=== PATIENT | female | born 1955 | race Caucasian/White ===

== ENCOUNTER 2018-02-16 12:46 | Outpatient (RCR) | payer BC, OTHER ==
[2018-02-03 13:31] LABS: BASOPHILS % (AUTO) 0 % (0-10); EOSINOPHILS # (AUTO) 0.3 10^3/uL (0.0-0.3); EOSINOPHILS % (AUTO) 3 % (0-10); HEMATOCRIT 44 % (35-52); HEMOGLOBIN 14.6 G/DL (11.5-16.0); LYMPHOCYTES % (AUTO) 25 % (12-44); MEAN CORPUSCULAR HEMOGLOBIN 29 PG (25-34); MEAN CORPUSCULAR HGB CONC 33 G/DL (32-36); MEAN CORPUSCULAR VOLUME 87 FL (80-99); MEAN PLATELET VOLUME 9.3 FL (7.4-10.4); MONOCYTES # (AUTO) 0.5 X 10^3 (0.0-1.0); MONOCYTES % (AUTO) 6 % (0-12); NEUTROPHILS # (AUTO) 5.4 X 10^3 (1.8-7.8); NEUTROPHILS % (AUTO) 66 % (42-75); PLATELET COUNT 364 10^3/uL (130-400); RED BLOOD COUNT 5.08 10^6/uL (4.35-5.85); RED CELL DISTRIBUTION WIDTH 16.5 % (10.0-14.5); WHITE BLOOD COUNT 8.2 10^3/uL (4.3-11.0)
[2018-02-03 13:53] LABS: ALBUMIN 4.3 GM/DL (3.2-4.5); BILIRUBIN,TOTAL 0.5 MG/DL (0.1-1.0); CALCIUM 10.1 MG/DL (8.5-10.1); CREATININE SERUM 1.23 MG/DL (0.60-1.30); POTASSIUM 4.9 MMOL/L (3.6-5.0); TOTAL PROTEIN 7.4 GM/DL (6.4-8.2)
[2018-02-18] MEDS ORDERED: VERA180T5 PO (13:06)
[2018-02-18] MEDS ORDERED: PANT40TA3 PO (13:06)
[2018-02-18] MEDS ORDERED: DOXE10CA29 PO (13:06)
[2018-02-18] MEDS ORDERED: BTR10SP2 NS (13:06)
[2018-02-18] MEDS ORDERED: CALC1TAB PO (13:06)
[2018-02-18] MEDS ORDERED: FROV2.5T5 PO (13:06)
[2018-02-18] MEDS ORDERED: BIOT10004 PO (13:06)
[2018-02-18] MEDS ORDERED: LEVO112T55 PO (13:06)
[2018-02-18] MEDS ORDERED: BUPR-42 PO (13:06)
[2018-02-18] MEDS ORDERED: VITA1CAP PO (13:06)
[2018-02-18] MEDS ORDERED: CHOL10003 PO (13:06)
[2018-02-18] MEDS ORDERED: DOCU-238 PO (13:08)
[2018-02-19] MEDS ORDERED: ACHD5005 PO (13:39)
== END 2018-03-01 | disposition home or self-care (01) ==
LOC: ONC 12:46
PROVIDERS: ATTEND Internal Medicine Hematology & Oncology
DX: Z08 Encounter for follow-up examination after completed treatment for malignant neoplasm (principal); Z85.3 Personal history of malignant neoplasm of breast; N63.20 Unspecified lump in the left breast, unspecified quadrant; I10 Essential (primary) hypertension; G43.909 Migraine, unspecified, not intractable, without status migrainosus; E03.9 Hypothyroidism, unspecified; N89.8 Other specified noninflammatory disorders of vagina; Z79.899 Other long term (current) drug therapy; Z90.12 Acquired absence of left breast and nipple
CPT/HCPCS: 36415; 80053; 85025; 99213

== ENCOUNTER 2018-02-18 05:53 | Outpatient (CLI) | payer OTHER ==
[~2018-02-18] VITALS: Ht 161.3 cm; Wt 64.4 kg
[2018-02-18] MEDS ORDERED: LEVO112T55 PO (13:06)
[2018-02-18] MEDS ORDERED: BIOT10004 PO (13:06)
[2018-02-18] MEDS ORDERED: CHOL10003 PO (13:06)
[2018-02-18] MEDS ORDERED: CALC1TAB PO (13:06)
[2018-02-18] MEDS ORDERED: FROV2.5T5 PO (13:06)
[2018-02-18] MEDS ORDERED: PANT40TA3 PO (13:06)
[2018-02-18] MEDS ORDERED: DOXE10CA29 PO (13:06)
[2018-02-18] MEDS ORDERED: VITA1CAP PO (13:06)
[2018-02-18] MEDS ORDERED: VERA180T5 PO (13:06)
[2018-02-18] MEDS ORDERED: BTR10SP2 NS (13:06)
[2018-02-18] MEDS ORDERED: BUPR-42 PO (13:06)
[2018-02-18] MEDS ORDERED: DOCU-238 PO (13:08)
[2018-02-19] MEDS ORDERED: ACHD5005 PO (13:39)
== END 2018-02-18 13:21 | disposition home or self-care (01) ==
LOC: PREOP 05:53
PROVIDERS: ATTEND Surgery
DX: Z01.818 Encounter for other preprocedural examination (principal)

== ENCOUNTER 2018-02-19 10:35 | Day surgery (SDC) | payer OTHER ==
[~2018-02-19] VITALS: Ht 161.3 cm; Wt 64.4 kg
[~2018-02-19 10:35] MED LIST: BIOT10004 PO; BTR10SP2 NS; BUPR-42 PO; CALC1TAB PO; CHOL10003 PO; DOCU-238 PO; DOXE10CA29 PO; FROV2.5T5 PO; LEVO112T55 PO; PANT40TA3 PO; VERA180T5 PO; VITA1CAP PO
--- OUTSIDE RECORDS SUMMARY | 2018-02-19 10:40 | XMS REPORT ---
Author Author [facility] Organization [facility] Address [address] [place], [place] [id number] Care Team Providers Care Inside Sales Lead Name Role Phone PCP Unavailable Allergies and Adverse Reactions Name Reaction Notes Demerol seizure Cafergot Red Dye #40 Plan of Treatment Not available. Medications Active Name Start Date Estimated Completion Date SIG Comments Trazodone Oral Tablet 100 mg 1 tab at bedtime Calcium 600 + D(3) Oral Tablet mg(1,500mg) -200 unit take 1 tablet by oral route 3 times a day Verapamil Oral Tablet Sustained Release 180 mg take 1 tablet (180 mg) by oral route once daily with food Synthroid Oral Tablet 88 mcg take 1 tablet (88 mcg) by oral route once daily Venlafaxine Oral Capsule, Sust. Release 24 hr 75 mg take 1 capsule (75 mg) by oral route once daily with food Citracal Plus Magnesium Oral Tablet 250-40-125 mg-mg-unit take 1 tablet by oral route daily Fluticasone Nasal [place], Suspension 50 mcg/Actuation spray 2 sprays ( 100 mcg) in each nostril by intranasal route once daily as needed Pepcid AC oral tablet 20 mg take 1 tablet (20 mg) by oral route 2 times per day Reglan oral tablet 5 mg 09/05/2014 take 1 tablet (5 mg) by oral route 4 times per day 30 minutes before meals and at bedtime Protonix oral tablet,delayed release (DR/EC) 40 mg 09/05/2014 12/04/2014 take 1 tablet (40 mg) by oral route once daily for 30 days Discontinued Name Start Date Discontinued Date SIG Comments Arimidex Oral Tablet 1 mg 10/21/2012 take 1 tablet (1 mg) by oral route once daily Prilosec OTC Oral Tablet, Delayed Release (E.C.) 20 mg 10/21/2012 take 1 tablet by oral route 2 times a day Boniva Oral Tablet 150 mg 10/21/2012 take 1 tablet (150 mg) by oral route once a month on the same date; Take with a full glass of water and remain in an upright position for at least 60 minutes. Progesterone in Oil Intramuscular 60 mg/ml cream 09/05/2014 1/2 to 1 ml 3x/ week estrogen 0.1%/testosterone 0.1% vaginal cream 09/05/2014 1 ml nightly Problem List Description Status Onset Hypertension Active Breast Cancer, Female Active Reflux esophagitis Active Vital Signs Date Time BP-Sys(mm[Hg] BP-Jaycee(mm[Hg]) HR(bpm) RR(rpm) Temp WT HT HC BMI BSA BMI Percentile O2 Sat(%) 09/05/2014 10:44:00 AM 136 mmHg 80 mmHg 77 bpm 20 rpm 96.8 F 156 lbs 63 in 27.63 kg/m2 1.77 m2 98 % 01/04/2013 11:55:00 AM 126 mmHg 86 mmHg 70 bpm 20 rpm 96.4 F 123 lbs 63 in 21.7882 kg/m 1.5748 m 96 % 10/21/2012 11:00:00 AM 122 mmHg 90 mmHg 82 bpm 20 rpm 97 F 133 lbs 63 in 23.56 kg/m2 1.64 m2 95 % 09/20/2010 9:40:00 AM 130 mmHg 78 mmHg 88 bpm 16 rpm 97.9 F 142.125 lbs 96 % 09/06/2010 3:13:00 PM 140 mmHg 90 mmHg 67 bpm 16 rpm 97.2 F 147.125 lbs 100 % Social History Name Description Comments Tobacco Never smoker History of Procedures Not available. Results Summary Not available. History Of Immunizations Not available. History of Past Illness Name Date of Onset Comments Hypertension Thyroid disorder Migraine Reflux esophagitis Breast Cancer, Female Allergic rhinitis Diverticulitis Gastritis Low Back Pain Sep 06 2010 3:33PM Resolved Low Back Pain Sep 20 2010 9:40AM Abdominal pain, epigastric Oct 21 2012 10:58AM Dyspepsia Oct 21 2012 10:58AM Colon Cancer Screening Oct 21 2012 10:58AM Family History of Colon Cancer Oct 21 2012 10:58AM Atrophic gastritis Jan 04 2013 11:56AM Follow-up examination after endoscopy Jan 04 2013 11:56AM Diverticulosis of the colon Jan 04 2013 11:56AM Ingrowing Nail Sep 05 2014 10:51AM Esophageal Reflux Sep 05 2014 10:51AM Payers Insurance Name Company Name Plan Name Plan Number Policy Number Policy Group Number Start Date [employer] [place] [id number] N/A [facility]- Supplement [id number] N/A [employer] [id number] N/A [facility] [id number] N/A History of Encounters Visit Date Visit Type Provider 09/05/2014 Procedures Marek Castro MD 01/04/2013 Office visit Marek Castro MD 11/19/2012 Hospital Marek Castro MD 10/21/2012 Office visit Marek Castro MD 09/20/2010 Office visit Sherine Kingston MD 09/06/2010 Office visit Sherine Kingston MD
--- OUTSIDE RECORDS SUMMARY | 2018-02-19 10:40 | XMS REPORT ---
Author Author [facility] Medical Staff Organization [facility] Address [address] [place], [place] [address] Phone [phone] Summary purpose CCDA Sent to [facility] Chief Complaint and Reason for Visit Admit Diagnosis 1 HYPOTHYROIDISM Problem list No authorized problems tracked for continuity of care are available for this visit. Encounters No authorized problems tracked for encounter diagnoses are available for this visit. Medications No medications recorded for this patient visit Allergies, adverse reactions, alerts No allergy information is available for this patient. Immunizations No immunizations recorded for this patient visit Relevant diagnostic tests and/or laboratory data No authorized results are available for this patient visit History of procedures Procedure Code Code Type Description Date Performed Performing Physician 72703 CPT-4 ASSAY THYROID STIM HORMONE 07-05-2016 ROBLES KYLE 76477 CPT-4 ASSAY OF FREE THYROXINE 07-05-2016 ROBLES KYLE Functional status No functional or cognitive status observations are available for this visit. Vital signs No authorized vital signs are available for this visit. Social history No Social History or smoking status observations were recorded for this visit. ( Unknown if ever smoked.) Treatment Plan No treatment plan text is available for this visit. Hospital discharge instructions No discharge instruction text is available for this visit.
--- OUTSIDE RECORDS SUMMARY | 2018-02-19 10:40 | XMS REPORT | CCD ---
Author Author MARCE LOVELACE Unknown Address [address] [place] [address] Care Team Providers Care Transition Of Care Specialist Name Role Phone EVANGELINA ER, TIMOTHY DO Attphys KATHLEEN ER, TIMOTHY DO Prisurg Allergies Allergy Code Allergy Type Reaction Status PYRIDIUM 0 Drug allergy Active DEMEROL 0 Drug allergy Active CAFERGOT 0 Drug allergy Active Active Medications Unknown or Not Available. Problems Unknown or Not Available. Procedures Procedure Code Procedure Type Date CT HEAD W/O CONTRAST 263225163 SNOMED CT 05/12/2016 CULTURE CSF 702115069 SNOMED CT 05/12/2016 GRAM STAIN 49147683 SNOMED CT 05/12/2016 CSF ROUTINE EXAM 130970896 SNOMED CT 05/12/[address] 78[address]15 [address] 05/12/2016 COMPREHENSIVE METABOLIC PANEL 527990573 SNOMED CT 2015 C REACTIVE PROTEIN 22350211 SNOMED CT 05/12/2016 CBC W/ AUTO DIFF (RFLX MAN DIFF IF IND) 2133966 SNOMED CT 05/12/2016 INFLUENZA A & B 018986802 SNOMED CT 05/12/2016 ^CBC W/AUTO DIFF 4003268 SNOMED CT 05/12/2016 Results COMPREHENSIVE METABOLIC PANEL - Collect Date/Time: 05/12/2016 10:25 Test Name Code Test Result Test Units Test Ref Range GLUCOSE 2345-7 91 MG/DL L=70 H=100 SODIUM 2951-2 142 MEQ/L L=135 H=148 POTASSIUM 2823-3 3.6 MEQ/L L=3.5 H=5.3 CHLORIDE 2075-0 106 MEQ/L L=96 H=110 CO2 2028-9 22 MEQ/L L=22 H=29 BUN 3094-0 15 MG/DL L=8 H=22 CREATININE 2160-0 1.2 MG/DL L=0.6 H=1.6 SGOT/AST 1920-8 15 IU/L L=10 H=40 SGPT/ALT 1742-6 9 IU/L L=8 H=54 ALK PHOS 6768-6 127 IU/L L=35 H=115 TOTAL PROTEIN 2885-2 6.8 G/DL L=5.5 H=8.5 ALBUMIN 1751-7 4.2 G/DL L=3.1 H=5.4 TOTAL BILI 1975-2 0.5 MG/DL L=0.0 H=1.5 CALCIUM 96499-9 10.1 MG/DL L=8.2 H=10.6 AGE 60 yrs GFR NonAA 46 GFR AA 56 eGFR 46 mL/min/1.7 eGFR AA* 56 mL/min/1.7 CBC W/ AUTO DIFF (RFLX MAN DIFF IF IND) - Collect Date/Time: 05/12/2016 10:25 Test Name Code Test Result Test Units Test Ref Range WBC 03377-3 7.1 TH/CMM L=4.5 H=10.8 RBC 789-8 4.73 ML/CMM L=4.20 H=5.40 HGB 718-7 13.9 G/DL L=12.0 H=16.0 HCT 4544-3 42.0 % L=37.0 H=47.0 MCV 89 FL L=81 H=99 MCH 29.4 PG L=27.0 H=33.0 MCHC 33.1 G/DL L=31.0 H=36.0 RDW SD 44 FL L=36 H=50 RDW CV 13.3 % L=0.0 H=14.8 MPV 9.4 FL L=9.3 H=12.5 PLT 777-3 298 TH/CMM L=130 H=440 NRBC# 0.00 TH/CMM L=0.00 H=0.00 NRBC% 0.0 /100WBC L=0.0 H=2.0 %NEUT 65.0 % %LYMP 26.9 % %MONO 7.0 % %EOS 0.3 % %BASO 0.4 % #NEUT 4.61 TH/CMM L=2.10 H=8.20 #LYMP 1.91 TH/CMM L=0.90 H=5.20 #MONO 0.50 TH/CMM L=0.16 H=1.00 #EOS 0.02 TH/CMM L=0.00 H=0.80 #BASO 0.03 TH/CMM L=0.00 H=0.20 MANUAL DIFF NOT IND N/A INFLUENZA A & B - Collect Date/Time: 05/12/2016 10:25 Test Name Code Test Result Test Units Test Ref Range INFLUENZA A & B 6437-8 NO INFLUENZA A OR B DETECTED N/A MENINGITIS/ENCEPHALITIS PANEL - Collect Date/Time: 05/12/2016 13:15 Test Name Code Test Result Test Units Test Ref Range Escherichia coli K1 Not Detected N/A NEG: Not Detected Haemophilus influen Not Detected N/A NEG: Not Detected Listeria monocytoge Not Detected N/A NEG: Not Detected Neisseria meningiti Not Detected N/A NEG: Not Detected Strep agalactiae Not Detected N/A NEG: Not Detected Strep pneumoniae Not Detected N/A NEG: Not Detected Cytomegalovirus Not Detected N/A NEG: Not Detected Enterovirus Not Detected N/A NEG: Not Detected Herpes simplex vir1 Not Detected N/A NEG: Not Detected Herpes simplex vir2 Not Detected N/A NEG: Not Detected Human herpesvirus 6 Not Detected N/A NEG: Not Detected Human parechovirus Not Detected N/A NEG: Not Detected Varicella zoster vi Not Detected N/A NEG: Not Detected Cryptococcus avani/ga Not Detected N/A NEG: Not Detected C REACTIVE PROTEIN - Collect Date/Time: 05/12/2016 10:25 Test Name Code Test Result Test Units Test Ref Range C REACTIVE PROTEIN 1988-5 <0.5 MG/DL L=0.0 H= 1.0 LACTIC ACID - Collect Date/Time: 05/12/2016 10:25 Test Name Code Test Result Test Units Test Ref Range LACTIC ACID 2524-7 2.2 mmol/L L=0.5 H=1.6 Function Status Unknown or Not Available. History of Immunizations Unknown or Not Available. Plan of Treatment Unknown or Not Available. Social History Smoking Status Code Start Date End Date Never smoker [id number] Vital Signs Unknown or Not Available. Function Status Unknown or Not Available. Goals Unknown or Not Available. ASSESSMENTS Unknown or Not Available. Health Concerns Section Unknown or Not Available.
--- OUTSIDE RECORDS SUMMARY | 2018-02-19 10:40 | XMS REPORT | CCD ---
Author Author MARCE LOVELACE Organization Unknown Address [address] [place] [address] Care Team Providers Care Methods Analyst Data Processing Name Role Phone OBED DAVIS DO Attphys Allergies Allergy Code Allergy Type Reaction Status PYRIDIUM 0 Drug allergy Active DEMEROL 0 Drug allergy Active CAFERGOT 0 Drug allergy Active Active Medications Medication Code Dose Units Frequency Route Modification Start Date/Time OFLOXACIN 0.3% "OCUFLOX" OPHTH DROPS 372974 1 EA X1 BOTHEYES 01/24/2017 22:15 Problems Unknown or Not Available. Procedures Unknown or Not Available. Results Unknown or Not Available. Function Status Unknown or Not Available. History of Immunizations Immunization Code Date Tdap 115 10/31/2011 Novel [id number] 127 05/19/2009 Influenza, seasonal, injectable 141 04/10/2012 Influenza, seasonal, injectable 141 03/22/2013 Plan of Treatment Unknown or Not Available. Social History Smoking Status Code Start Date End Date Never smoker [id number] Vital Signs Unknown or Not Available. Function Status Unknown or Not Available. Goals Unknown or Not Available. ASSESSMENTS Unknown or Not Available. Health Concerns Section Unknown or Not Available.
[2018-02-19] MEDS ORDERED: LACTATED RINGERS 1,000 ML IV PRN (10:52)
[2018-02-19] MEDS ORDERED: ceFAZolin 2 GM IV Premixed 50 ML IV ONE (11:00)
[2018-02-19 11:15] VITALS: BP 146/89
[2018-02-19] MEDS ORDERED: proPOfol 200 MG/20 ML (DIPRIVAN) VIAL IV ONE (12:25)
[2018-02-19] MEDS ORDERED: DEXAMETHASONE 10 MG/ML (DECADRON) 1 ML VIAL ONE (12:25)
[2018-02-19] MEDS ORDERED: LIDOCAINE PF 2% 2 ML (XYLOCAINE) VIAL ONE (12:25)
[2018-02-19] MEDS ORDERED: SEVOFLURANE (ULTANE) 15 ML INHAL SOLN ONE ×3 (12:25→13:17)
[2018-02-19] MEDS ORDERED: ONDANSETRON 4 MG/2 ML (SDV) Z0FRAN ONE (12:25)
[2018-02-19] MEDS ORDERED: fentaNYL INJECTION 100 MCG/2 ML AMP ONE (12:26)
[2018-02-19] MEDS ORDERED: MIDAZOLAM 2 MG/2 ML (VERSED) VIAL ONE (12:26)
--- NOTE | 2018-02-19 12:32 | Progress Note-Pre Operative ---
Pre-Operative Progress Note H&P Reviewed The H&P was reviewed, patient examined and no changes noted. Date Seen by Provider: Feb 19, 2018 Time Seen by Provider: 12:32 Date H&P Reviewed: Feb 19, 2018 Time H&P Reviewed: 12:32 Pre-Operative Diagnosis: left breast mass MONA PINA DO Feb 19, 2018 12:32
[2018-02-19] MEDS ORDERED: BUPIVACAINE 0.5% 30 ML (SENSORCAINE) VIAL ONE (12:35)
[2018-02-19] MEDS ORDERED: LIDOCAINE 1% INJ 20 ML 20 ML VIAL ONE (12:35)
--- NOTE | 2018-02-19 13:38 | Progress Note-Post Operative ---
Post-Operative Progess Note Surgeon (s)/Machine Builder (s) Surgeon MONA PINA DO Machine Builder: na Pre-Operative Diagnosis left breast mass Post-Operative Diagnosis same Procedure & Operative Findings Date of Procedure 02/19/18 Procedure Performed/Findings excisional left breast biopsy 2.4x5.5cm Anesthesia Type gen Estimated Blood Loss Estimated blood loss (mL): min Specimens/Packing Specimens Removed left breast mass MONA PINA DO Feb 19, 2018 13:38
[2018-02-19] MEDS ORDERED: ACHD5005 PO (13:39)
--- NOTE | 2018-02-19 13:41 | Discharge Inst-Simple/Standard ---
Discharge Inst-Standard Discharge Medications New, Converted or Re-Newed RX: RX on Chart Patient Instructions/Follow Up Plan of Care/Instructions/FU: 2 weeks Herrera Activity as Tolerated: No Discharge Diet: Regular Diet Other Inst to Patient Follow up Appt: Make appointment for 2 week. Instructions: No lifting greater than 10 pounds. No strenuous activity. May shower in 24 hours, no tub bath or soaking. Use incentive spirometer at home as directed. No Smoking Skin/Wound Care: You have special glue over incision it will fall off on its own. Symptoms to Report: Appetite Changes, Extremity Discoloration, Numbness/Tingling, Swelling Increased , Bleeding Excessive, Eyesight Changes, Pain Increased, Urine Color Change, Constipation(Persistent), Fever over 101 degree F, Pain/Pressure in chest, Urinating Difficulty, Cough Up/Vomit Blood, Heart Beat Irreg/Pounding, Pain/ Pressure in jaw, Vaginal Bleeding Increase, Cramps in feet or legs, Lightheadedness, Pain/Pressure in shoulder, Diarrhea(Persistent), Memory Changes Suddenly, Questions/Concerns, Weight gain consecutive days, Dizziness/ Fainting, Nausea/Vomiting, Shortness of Breath, Weight gain over 2 pounds If questions or concerns contact your physician Or seek help at emergency department. MONA HERRERA DO Feb 19, 2018 13:41
[2018-02-19] MEDS ORDERED: ONDANSETRON 4 MG/2 ML (SDV) Z0FRAN IVP PRN (14:00)
[2018-02-19] MEDS ORDERED: HYDROmorphone 2 MG/ML VIAL (DILAUDID) IV ONE (14:00)
[2018-02-19] MEDS ORDERED: fentaNYL INJECTION 100 MCG/2 ML AMP IVP ONE (14:00)
--- NOTE | 2018-02-19 14:26 | Anesthesia-General Post-Op ---
General Patient Condition Mental Status/LOC: Same as Preop Cardiovascular: Satisfactory Nausea/Vomiting: Absent Respiratory: Satisfactory Pain: Controlled Complications: Absent Post Op Complications Complications None Follow Up Care/Instructions Patient Instructions None needed. Anesthesia/Patient Condition Patient Condition Patient is doing well, no complaints, stable vital signs, no apparent adverse anesthesia problems. No complications reported per nursing. MARINA MORALES CRNA Feb 19, 2018 14:26
[2018-02-19 14:35] VITALS: BP 113/74
--- NOTE | 2018-02-19 14:36 | OPERATIVE REPORT ---
DATE OF SERVICE: 02/19/2018 PREOPERATIVE DIAGNOSIS: Left breast mass. POSTOPERATIVE DIAGNOSIS: Left breast mass. PROCEDURE: Left excisional breast biopsy 2.4 x 5.5 cm. SURGEON: Mona Herrera DO. ANESTHESIA: General. ESTIMATED BLOOD LOSS: Minimal. COMPLICATIONS: None. INDICATIONS: The patient is a 62-year-old female with history of left breast cancer. She is status post mastectomy. She has palpable mass. It is not amenable to interventional radiology biopsy or ultrasound-guided biopsy. The patient was explained risks and benefits of procedure and wished to proceed with procedure. Consent was signed on the chart. DESCRIPTION OF PROCEDURE: The patient was taken to the operating suite. She was prepped and draped in sterile fashion. Surgical pause was performed. An elliptical incision was made around the palpable mass measuring 2.4 x 5.5 cm. The cautery was used to dissect around the palpable mass taking all the way down to the pectoral muscle where the fascia had been previously removed. The specimen was removed. This was labeled long suture laterally and short suture superiorly on the skin edge. The cavity had clips placed within the breast cavity medial, lateral, superior and inferiorly. The subcutaneous tissues were then reapproximated using 3-0 Vicryl after it had been irrigated with sterile water. The subcutaneous tissues were then closed using 4-0 Vicryl in a running subcuticular fashion after local anesthetic was infiltrated into the wound. The chest was then washed and dried and Skin Affix was placed over the incision. The patient tolerated the procedure well without complications. She was taken to recovery room in stable condition. Job ID: [id number] DocumentID: [id number] Dictated Date: 02/19/2018 13:46:18 Video Game Designer Date: 02/19/2018 14:35:49 Dictated By: MONA HERRERA DO
[2018-02-19 15:05] VITALS: BP 135/79
[2018-02-19 15:35] VITALS: BP 153/87
[2018-02-19 15:50] VITALS: BP 153/87
== END 2018-02-19 15:50 | disposition home or self-care (01) ==
LOC: SDC 10:35
PROVIDERS: ATTEND Surgery
DX: C50.812 Malignant neoplasm of overlapping sites of left female breast (principal); I10 Essential (primary) hypertension; K21.9 Gastro-esophageal reflux disease without esophagitis; Z79.899 Other long term (current) drug therapy
CPT/HCPCS: 87081

== ENCOUNTER → 2018-03-24 | Outpatient (CLI) | payer OTHER ==
[~2018-03-24] MED LIST changes: +ACHD5005 PO
--- NOTE | 2018-03-24 17:00 | Diagnostic Imaging Report ---
INDICATION: Breast carcinoma restaging. TECHNIQUE: Serum blood glucose level at the time of injection was 92 mg/dL. The patient was administered 12.8 mCi F-18 FDG intravenously in the right antecubital location and whole body PET imaging was performed. COMPARISON: Comparison is made with prior PET/CT from 06/06/2011. FINDINGS: There is symmetric activity within the brain. Physiologic activity within the soft tissues of the neck is identified. Physiologic activity in the mediastinum and mike is seen. No pulmonary parenchymal hypermetabolism is identified. There are postop changes of left mastectomy. There is a focus of abnormal soft tissue with hypermetabolism in the residual tissue in the left chest just below the skin surface. This demonstrates SUV max 4.6 and may represent a local recurrence. No hypermetabolic axillary or internal mammary nodes are seen. Previously noted activity involving an upper medial left rib is no longer visualized. There is physiologic activity in the GI and tracts of the abdomen and pelvis. There is a focus of activity involving the ascending colon. No definite CT correlate is identified but correlation with colonoscopy would be recommended. The pelvis is unremarkable. Imaging through the lower extremities is unremarkable for hypermetabolism. IMPRESSION: 1. Status post left mastectomy. There is a focus of hypermetabolism in the left chest wall subcutaneous fat suspicious for focal recurrence. No hypermetabolic chest lymphadenopathy is seen. 2. Focus of hypermetabolism in the ascending colon, nonspecific. Correlation with endoscopy would be useful. Remainder of the study is unremarkable. Dictated by: Dictated on workstation # [id number]
== END ==
LOC: RAD 13:54
PROVIDERS: ATTEND Nurse Practitioner Family
DX: C50.912 Malignant neoplasm of unspecified site of left female breast (principal); C79.2 Secondary malignant neoplasm of skin; Z90.12 Acquired absence of left breast and nipple

== ENCOUNTER 2018-03-31 08:49 | Outpatient (RCR) | payer OTHER | END 2018-03-31 15:48 | disposition home or self-care (01) | LOC: ONC 08:49 | PROVIDERS: ATTEND Internal Medicine Hematology & Oncology | DX: Z51.0 Encounter for antineoplastic radiation therapy (principal); C79.89 Secondary malignant neoplasm of other specified sites; Z85.3 Personal history of malignant neoplasm of breast; R21 Rash and other nonspecific skin eruption; I10 Essential (primary) hypertension; G43.909 Migraine, unspecified, not intractable, without status migrainosus; E03.9 Hypothyroidism, unspecified; N89.8 Other specified noninflammatory disorders of vagina; F32.9 Major depressive disorder, single episode, unspecified; Z79.899 Other long term (current) drug therapy; Z90.12 Acquired absence of left breast and nipple | CPT/HCPCS: 77290; 77295; 77300; 77332; 77334; 77417; 77470; 99204; 99213 ==

== ENCOUNTER 2018-06-11 09:28 | Outpatient (RCR) | payer OTHER ==
[2018-05-13 09:13] LABS: BASOPHILS % (AUTO) 1 % (0-10); EOSINOPHILS # (AUTO) 0.3 10^3/uL (0.0-0.3); EOSINOPHILS % (AUTO) 7 % (0-10); HEMATOCRIT 38 % (35-52); HEMOGLOBIN 12.2 G/DL (11.5-16.0); LYMPHOCYTES # (AUTO) 0.8 X 10^3 (1.0-4.0); LYMPHOCYTES % (AUTO) 22 % (12-44); MEAN CORPUSCULAR HEMOGLOBIN 29 PG (25-34); MEAN CORPUSCULAR HGB CONC 32 G/DL (32-36); MEAN CORPUSCULAR VOLUME 91 FL (80-99); MEAN PLATELET VOLUME 9.1 FL (7.4-10.4); MONOCYTES # (AUTO) 0.5 X 10^3 (0.0-1.0); MONOCYTES % (AUTO) 13 % (0-12); NEUTROPHILS # (AUTO) 2.2 X 10^3 (1.8-7.8); NEUTROPHILS % (AUTO) 57 % (42-75); PLATELET COUNT 281 10^3/uL (130-400); RED CELL DISTRIBUTION WIDTH 15.4 % (10.0-14.5); WHITE BLOOD COUNT 3.8 10^3/uL (4.3-11.0)
[2018-05-13 09:31] LABS: ALBUMIN 3.6 GM/DL (3.2-4.5); BILIRUBIN,TOTAL 0.3 MG/DL (0.1-1.0); CALCIUM 9.3 MG/DL (8.5-10.1); CREATININE SERUM 1.23 MG/DL (0.60-1.30); TOTAL PROTEIN 6.1 GM/DL (6.4-8.2)
[2018-06-11 09:42] LABS: BASOPHILS % (AUTO) 1 % (0-10); EOSINOPHILS # (AUTO) 0.4 10^3/uL (0.0-0.3); EOSINOPHILS % (AUTO) 9 % (0-10); HEMATOCRIT 35 % (35-52); HEMOGLOBIN 11.9 G/DL (11.5-16.0); LYMPHOCYTES # (AUTO) 0.8 X 10^3 (1.0-4.0); LYMPHOCYTES % (AUTO) 18 % (12-44); MEAN CORPUSCULAR HEMOGLOBIN 29 PG (25-34); MEAN CORPUSCULAR HGB CONC 34 G/DL (32-36); MEAN CORPUSCULAR VOLUME 87 FL (80-99); MEAN PLATELET VOLUME 8.6 FL (7.4-10.4); MONOCYTES # (AUTO) 0.4 X 10^3 (0.0-1.0); MONOCYTES % (AUTO) 10 % (0-12); NEUTROPHILS # (AUTO) 2.8 X 10^3 (1.8-7.8); NEUTROPHILS % (AUTO) 63 % (42-75); PLATELET COUNT 304 10^3/uL (130-400); WHITE BLOOD COUNT 4.5 10^3/uL (4.3-11.0)
[2018-06-11 10:01] LABS: ALBUMIN 3.8 GM/DL (3.2-4.5); BILIRUBIN,TOTAL 0.4 MG/DL (0.1-1.0); CALCIUM 9.2 MG/DL (8.5-10.1); CREATININE SERUM 1.21 MG/DL (0.60-1.30); POTASSIUM 3.9 MMOL/L (3.6-5.0); TOTAL PROTEIN 6.5 GM/DL (6.4-8.2)
== END 2018-06-30 | disposition home or self-care (01) ==
LOC: ONC 09:28
PROVIDERS: ATTEND Internal Medicine Hematology & Oncology
DX: Z51.0 Encounter for antineoplastic radiation therapy (principal); C79.89 Secondary malignant neoplasm of other specified sites; Z85.3 Personal history of malignant neoplasm of breast; R21 Rash and other nonspecific skin eruption; N63.20 Unspecified lump in the left breast, unspecified quadrant; I10 Essential (primary) hypertension; G43.909 Migraine, unspecified, not intractable, without status migrainosus; E03.9 Hypothyroidism, unspecified; N89.8 Other specified noninflammatory disorders of vagina; Z79.899 Other long term (current) drug therapy; Z90.12 Acquired absence of left breast and nipple
CPT/HCPCS: 36415; 77290; 77300; 77334; 77336; 77417; 80053; 85025; 99213

== ENCOUNTER 2018-09-10 10:44 | Outpatient (RCR) | payer MEDICARE, OTHER ==
[2018-07-14 09:36] LABS: BASOPHILS % (AUTO) 0 % (0-10); EOSINOPHILS # (AUTO) 0.4 10^3/uL (0.0-0.3); EOSINOPHILS % (AUTO) 8 % (0-10); HEMATOCRIT 39 % (35-52); HEMOGLOBIN 12.7 G/DL (11.5-16.0); LYMPHOCYTES # (AUTO) 1.2 X 10^3 (1.0-4.0); LYMPHOCYTES % (AUTO) 25 % (12-44); MEAN CORPUSCULAR HEMOGLOBIN 28 PG (25-34); MEAN CORPUSCULAR HGB CONC 33 G/DL (32-36); MEAN CORPUSCULAR VOLUME 86 FL (80-99); MEAN PLATELET VOLUME 9.2 FL (7.4-10.4); MONOCYTES # (AUTO) 0.4 X 10^3 (0.0-1.0); MONOCYTES % (AUTO) 9 % (0-12); NEUTROPHILS # (AUTO) 2.7 X 10^3 (1.8-7.8); NEUTROPHILS % (AUTO) 57 % (42-75); PLATELET COUNT 287 10^3/uL (130-400); RED CELL DISTRIBUTION WIDTH 14.9 % (10.0-14.5); WHITE BLOOD COUNT 4.6 10^3/uL (4.3-11.0)
[2018-07-14 10:00] LABS: ALBUMIN 3.8 GM/DL (3.2-4.5); BILIRUBIN,TOTAL 0.5 MG/DL (0.1-1.0); CALCIUM 9.6 MG/DL (8.5-10.1); CREATININE SERUM 1.12 MG/DL (0.60-1.30); POTASSIUM 3.4 MMOL/L (3.6-5.0); TOTAL PROTEIN 6.6 GM/DL (6.4-8.2)
[~2018-09-10 10:44] MED LIST changes: +VERA180T11 PO; -VERA180T5 PO
[2018-09-10 11:19] LABS: BASOPHILS % (AUTO) 1 % (0-10); EOSINOPHILS # (AUTO) 0.7 10^3/uL (0.0-0.3); EOSINOPHILS % (AUTO) 15 % (0-10); HEMATOCRIT 36 % (35-52); HEMOGLOBIN 12.2 G/DL (11.5-16.0); LYMPHOCYTES # (AUTO) 1.1 X 10^3 (1.0-4.0); LYMPHOCYTES % (AUTO) 22 % (12-44); MEAN CORPUSCULAR HEMOGLOBIN 29 PG (25-34); MEAN CORPUSCULAR HGB CONC 34 G/DL (32-36); MEAN CORPUSCULAR VOLUME 85 FL (80-99); MEAN PLATELET VOLUME 9.4 FL (7.4-10.4); MONOCYTES # (AUTO) 0.5 X 10^3 (0.0-1.0); MONOCYTES % (AUTO) 11 % (0-12); NEUTROPHILS # (AUTO) 2.5 X 10^3 (1.8-7.8); NEUTROPHILS % (AUTO) 52 % (42-75); PLATELET COUNT 269 10^3/uL (130-400); RED CELL DISTRIBUTION WIDTH 16.9 % (10.0-14.5); WHITE BLOOD COUNT 4.9 10^3/uL (4.3-11.0)
[2018-09-10 11:46] LABS: ALBUMIN 3.9 GM/DL (3.2-4.5); BILIRUBIN,TOTAL 0.4 MG/DL (0.1-1.0); CALCIUM 9.3 MG/DL (8.5-10.1); CREATININE SERUM 1.1 MG/DL (0.60-1.30); POTASSIUM 3.5 MMOL/L (3.6-5.0); TOTAL PROTEIN 6.4 GM/DL (6.4-8.2)
== END 2018-10-05 | disposition home or self-care (01) ==
LOC: ONC 10:44
PROVIDERS: ATTEND Internal Medicine Hematology & Oncology
DX: Z08 Encounter for follow-up examination after completed treatment for malignant neoplasm (principal); Z85.3 Personal history of malignant neoplasm of breast; R21 Rash and other nonspecific skin eruption; N63.20 Unspecified lump in the left breast, unspecified quadrant; I10 Essential (primary) hypertension; G43.909 Migraine, unspecified, not intractable, without status migrainosus; E03.9 Hypothyroidism, unspecified; N89.8 Other specified noninflammatory disorders of vagina; Z79.899 Other long term (current) drug therapy; Z90.12 Acquired absence of left breast and nipple
CPT/HCPCS: 36415; 80053; 82306; 84443; 85025; 99213

== ENCOUNTER 2018-12-30 11:23 | Outpatient (RCR) | payer MEDICARE, OTHER ==
[2018-12-30 11:32] LABS: BASOPHILS % (AUTO) 0 % (0-10); EOSINOPHILS # (AUTO) 0.4 10^3/uL (0.0-0.3); EOSINOPHILS % (AUTO) 7 % (0-10); HEMATOCRIT 38 % (35-52); HEMOGLOBIN 12.4 G/DL (11.5-16.0); LYMPHOCYTES # (AUTO) 1.3 X 10^3 (1.0-4.0); LYMPHOCYTES % (AUTO) 22 % (12-44); MEAN CORPUSCULAR HEMOGLOBIN 29 PG (25-34); MEAN CORPUSCULAR HGB CONC 33 G/DL (32-36); MEAN CORPUSCULAR VOLUME 88 FL (80-99); MEAN PLATELET VOLUME 9.3 FL (7.4-10.4); MONOCYTES # (AUTO) 0.5 X 10^3 (0.0-1.0); MONOCYTES % (AUTO) 7 % (0-12); NEUTROPHILS # (AUTO) 3.9 X 10^3 (1.8-7.8); NEUTROPHILS % (AUTO) 64 % (42-75); PLATELET COUNT 320 10^3/uL (130-400); RED CELL DISTRIBUTION WIDTH 16.7 % (10.0-14.5); WHITE BLOOD COUNT 6.1 10^3/uL (4.3-11.0)
[2018-12-30 11:51] LABS: ALBUMIN 3.9 GM/DL (3.2-4.5); BILIRUBIN,TOTAL 0.3 MG/DL (0.1-1.0); CALCIUM 9.8 MG/DL (8.5-10.1); CREATININE SERUM 0.99 MG/DL (0.60-1.30); POTASSIUM 3.2 MMOL/L (3.6-5.0); TOTAL PROTEIN 6.7 GM/DL (6.4-8.2)
== END 2019-03-30 | disposition home or self-care (01) ==
LOC: ONC 11:23
PROVIDERS: ATTEND Internal Medicine Hematology & Oncology
DX: Z08 Encounter for follow-up examination after completed treatment for malignant neoplasm (principal); Z85.3 Personal history of malignant neoplasm of breast; R21 Rash and other nonspecific skin eruption; N63.20 Unspecified lump in the left breast, unspecified quadrant; I10 Essential (primary) hypertension; G43.909 Migraine, unspecified, not intractable, without status migrainosus; E03.9 Hypothyroidism, unspecified; N89.8 Other specified noninflammatory disorders of vagina; Z79.899 Other long term (current) drug therapy; Z90.12 Acquired absence of left breast and nipple
CPT/HCPCS: 36415; 80053; 84443; 85025; 99213

== ENCOUNTER → 2019-06-29 | Outpatient (RCR) | payer MEDICARE, OTHER ==
[2019-03-31 10:40] LABS: BASOPHILS % (AUTO) 1 % (0-10); EOSINOPHILS # (AUTO) 0.5 10^3/uL (0.0-0.3); EOSINOPHILS % (AUTO) 11 % (0-10); HEMATOCRIT 44 % (35-52); HEMOGLOBIN 14.7 G/DL (11.5-16.0); LYMPHOCYTES # (AUTO) 0.9 X 10^3 (1.0-4.0); LYMPHOCYTES % (AUTO) 20 % (12-44); MEAN CORPUSCULAR HEMOGLOBIN 30 PG (25-34); MEAN CORPUSCULAR HGB CONC 34 G/DL (32-36); MEAN CORPUSCULAR VOLUME 88 FL (80-99); MONOCYTES # (AUTO) 0.5 X 10^3 (0.0-1.0); MONOCYTES % (AUTO) 11 % (0-12); NEUTROPHILS # (AUTO) 2.5 X 10^3 (1.8-7.8); NEUTROPHILS % (AUTO) 56 % (42-75); PLATELET COUNT 267 10^3/uL (130-400); RED CELL DISTRIBUTION WIDTH 15.6 % (10.0-14.5); WHITE BLOOD COUNT 4.4 10^3/uL (4.3-11.0)
[2019-03-31 11:07] LABS: ALBUMIN 4.3 GM/DL (3.2-4.5); BILIRUBIN,TOTAL 0.4 MG/DL (0.1-1.0); CALCIUM 9.9 MG/DL (8.5-10.1); CREATININE SERUM 1.07 MG/DL (0.60-1.30); POTASSIUM 3.8 MMOL/L (3.6-5.0); TOTAL PROTEIN 7.2 GM/DL (6.4-8.2)
[2019-06-29 11:18] LABS: BASOPHILS % (AUTO) 0 % (0-10); EOSINOPHILS # (AUTO) 0.5 10^3/uL (0.0-0.3); EOSINOPHILS % (AUTO) 11 % (0-10); HEMATOCRIT 41 % (35-52); HEMOGLOBIN 13.6 G/DL (11.5-16.0); LYMPHOCYTES # (AUTO) 1.2 X 10^3 (1.0-4.0); LYMPHOCYTES % (AUTO) 27 % (12-44); MEAN CORPUSCULAR HEMOGLOBIN 30 PG (25-34); MEAN CORPUSCULAR HGB CONC 33 G/DL (32-36); MEAN CORPUSCULAR VOLUME 90 FL (80-99); MEAN PLATELET VOLUME 9.3 FL (7.4-10.4); MONOCYTES # (AUTO) 0.4 X 10^3 (0.0-1.0); MONOCYTES % (AUTO) 8 % (0-12); NEUTROPHILS # (AUTO) 2.5 X 10^3 (1.8-7.8); NEUTROPHILS % (AUTO) 54 % (42-75); PLATELET COUNT 271 10^3/uL (130-400); RED CELL DISTRIBUTION WIDTH 15.1 % (10.0-14.5); WHITE BLOOD COUNT 4.7 10^3/uL (4.3-11.0)
[2019-06-29 11:43] LABS: ALBUMIN 4.2 GM/DL (3.2-4.5); BILIRUBIN,TOTAL 0.5 MG/DL (0.1-1.0); CALCIUM 9.4 MG/DL (8.5-10.1); CREATININE SERUM 1.14 MG/DL (0.60-1.30); POTASSIUM 3.2 MMOL/L (3.6-5.0)
== END | disposition home or self-care (01) ==
LOC: ONC 03-31 10:23
PROVIDERS: ATTEND Internal Medicine Hematology & Oncology
DX: Z08 Encounter for follow-up examination after completed treatment for malignant neoplasm (principal); Z85.3 Personal history of malignant neoplasm of breast; R21 Rash and other nonspecific skin eruption; N63.20 Unspecified lump in the left breast, unspecified quadrant; I10 Essential (primary) hypertension; G43.909 Migraine, unspecified, not intractable, without status migrainosus; E03.9 Hypothyroidism, unspecified; N89.8 Other specified noninflammatory disorders of vagina; Z79.899 Other long term (current) drug therapy; Z90.12 Acquired absence of left breast and nipple
CPT/HCPCS: 36415; 80053; 84443; 85025; 99213

== ENCOUNTER → 2019-11-09 | Outpatient (CLI) | payer MEDICARE, OTHER ==
[2019-11-09 14:54] LABS: BASOPHILS % (AUTO) 1 % (0-10); EOSINOPHILS # (AUTO) 0.5 10^3/uL (0.0-0.3); EOSINOPHILS % (AUTO) 10 % (0-10); HEMATOCRIT 35 % (35-52); HEMOGLOBIN 11.5 G/DL (11.5-16.0); LYMPHOCYTES # (AUTO) 1.5 X 10^3 (1.0-4.0); LYMPHOCYTES % (AUTO) 31 % (12-44); MEAN CORPUSCULAR HEMOGLOBIN 28 PG (25-34); MEAN CORPUSCULAR HGB CONC 33 G/DL (32-36); MEAN CORPUSCULAR VOLUME 86 FL (80-99); MEAN PLATELET VOLUME 9.2 FL (7.4-10.4); MONOCYTES # (AUTO) 0.5 X 10^3 (0.0-1.0); MONOCYTES % (AUTO) 9 % (0-12); NEUTROPHILS # (AUTO) 2.5 X 10^3 (1.8-7.8); NEUTROPHILS % (AUTO) 50 % (42-75); PLATELET COUNT 266 10^3/uL (130-400); RED CELL DISTRIBUTION WIDTH 15.8 % (10.0-14.5)
[2019-11-09 15:15] LABS: ALBUMIN 4.1 GM/DL (3.2-4.5); BILIRUBIN,TOTAL 0.5 MG/DL (0.1-1.0); CALCIUM 9.4 MG/DL (8.5-10.1); CREATININE SERUM 1.95 MG/DL (0.60-1.30); POTASSIUM 2.9 MMOL/L (3.6-5.0); TOTAL PROTEIN 6.7 GM/DL (6.4-8.2)
== END ==
LOC: EDSTATUS 06-30 09:14 → ONC 14:38
PROVIDERS: ATTEND Internal Medicine Hematology & Oncology
DX: C50.412 Malignant neoplasm of upper-outer quadrant of left female breast (principal); N28.9 Disorder of kidney and ureter, unspecified; M79.18 Myalgia, other site; M25.50 Pain in unspecified joint; N18.3 Chronic kidney disease, stage 3 (moderate); M85.89 Other specified disorders of bone density and structure, multiple sites; Z90.12 Acquired absence of left breast and nipple; Z98.890 Other specified postprocedural states; Z92.21 Personal history of antineoplastic chemotherapy; Z17.0 Estrogen receptor positive status [ER+]; Z79.899 Other long term (current) drug therapy
CPT/HCPCS: 80053; 82306; 84443; 85025; 99213

== ENCOUNTER → 2020-02-08 | Outpatient (CLI) | payer MEDICARE, OTHER ==
[2020-02-08 15:01] LABS: BASOPHILS # (AUTO) 0.1 10^3/uL (0.0-0.1); BASOPHILS % (AUTO) 1 % (0-10); EOSINOPHILS # (AUTO) 0.7 10^3/uL (0.0-0.3); EOSINOPHILS % (AUTO) 13 % (0-10); HEMATOCRIT 36 % (35-52); HEMOGLOBIN 11.9 G/DL (11.5-16.0); LYMPHOCYTES # (AUTO) 1.5 X 10^3 (1.0-4.0); LYMPHOCYTES % (AUTO) 27 % (12-44); MEAN CORPUSCULAR HEMOGLOBIN 28 PG (25-34); MEAN CORPUSCULAR HGB CONC 33 G/DL (32-36); MEAN CORPUSCULAR VOLUME 84 FL (80-99); MEAN PLATELET VOLUME 8.9 FL (7.4-10.4); MONOCYTES # (AUTO) 0.4 X 10^3 (0.0-1.0); MONOCYTES % (AUTO) 8 % (0-12); NEUTROPHILS # (AUTO) 2.7 X 10^3 (1.8-7.8); NEUTROPHILS % (AUTO) 51 % (42-75); PLATELET COUNT 320 10^3/uL (130-400); WHITE BLOOD COUNT 5.3 10^3/uL (4.3-11.0)
[2020-02-08 15:22] LABS: ALBUMIN 3.9 GM/DL (3.2-4.5); BILIRUBIN,TOTAL 0.3 MG/DL (0.1-1.0); CALCIUM 8.8 MG/DL (8.5-10.1); CREATININE SERUM 1.25 MG/DL (0.60-1.30); POTASSIUM 3.7 MMOL/L (3.6-5.0); TOTAL PROTEIN 6.6 GM/DL (6.4-8.2)
== END ==
LOC: ONC 14:51
PROVIDERS: ATTEND Internal Medicine Hematology & Oncology
DX: M85.88 Other specified disorders of bone density and structure, other site (principal); E03.9 Hypothyroidism, unspecified; I12.9 Hypertensive chronic kidney disease with stage 1 through stage 4 chronic kidney disease, or unspecified chronic kidney disease; N18.4 Chronic kidney disease, stage 4 (severe); M79.10 Myalgia, unspecified site; M25.50 Pain in unspecified joint; L29.9 Pruritus, unspecified; R21 Rash and other nonspecific skin eruption; Z85.3 Personal history of malignant neoplasm of breast; Z90.12 Acquired absence of left breast and nipple; Z98.890 Other specified postprocedural states; Z92.21 Personal history of antineoplastic chemotherapy; Z92.3 Personal history of irradiation
CPT/HCPCS: 80053; 84443; 85025; G0463; 99213

== ENCOUNTER → 2020-06-27 | Outpatient (CLI) | payer MEDICARE, OTHER ==
[~2020-06-27] MED LIST changes: -PANT40TA3 PO; +PANT40TA52 PO
[2020-06-27 11:11] LABS: BASOPHILS % (AUTO) 1 % (0-10); EOSINOPHILS # (AUTO) 0.5 10^3/uL (0.0-0.3); EOSINOPHILS % (AUTO) 9 % (0-10); HEMATOCRIT 41 % (35-52); LYMPHOCYTES # (AUTO) 1.7 10^3/uL (1.0-4.0); LYMPHOCYTES % (AUTO) 28 % (12-44); MEAN CORPUSCULAR HEMOGLOBIN 28 pg (25-34); MEAN CORPUSCULAR HGB CONC 32 g/dL (32-36); MEAN CORPUSCULAR VOLUME 88 fL (80-99); MEAN PLATELET VOLUME 9.2 fL (9.0-12.2); MONOCYTES # (AUTO) 0.5 10^3/uL (0.0-1.0); MONOCYTES % (AUTO) 8 % (0-12); NEUTROPHILS # (AUTO) 3.3 10^3/uL (1.8-7.8); NEUTROPHILS % (AUTO) 54 % (42-75); PLATELET COUNT 334 10^3/uL (130-400); WHITE BLOOD COUNT 6.1 10^3/uL (4.3-11.0)
[2020-06-27 11:31] LABS: ALBUMIN 4.1 GM/DL (3.2-4.5); BILIRUBIN,TOTAL 0.3 MG/DL (0.1-1.0); CALCIUM 9.6 MG/DL (8.5-10.1); CREATININE SERUM 1.36 MG/DL (0.60-1.30); POTASSIUM 3.5 MMOL/L (3.6-5.0); TOTAL PROTEIN 7.1 GM/DL (6.4-8.2)
== END ==
LOC: ONC 11:01
PROVIDERS: ATTEND Internal Medicine Hematology & Oncology
DX: M85.88 Other specified disorders of bone density and structure, other site (principal); I12.9 Hypertensive chronic kidney disease with stage 1 through stage 4 chronic kidney disease, or unspecified chronic kidney disease; N18.4 Chronic kidney disease, stage 4 (severe); E03.9 Hypothyroidism, unspecified; F32.9 Major depressive disorder, single episode, unspecified; C79.89 Secondary malignant neoplasm of other specified sites; C79.2 Secondary malignant neoplasm of skin; Z78.0 Asymptomatic menopausal state; Z85.3 Personal history of malignant neoplasm of breast; Z90.12 Acquired absence of left breast and nipple; Z98.890 Other specified postprocedural states; Z92.21 Personal history of antineoplastic chemotherapy; Z92.3 Personal history of irradiation; Z80.3 Family history of malignant neoplasm of breast
CPT/HCPCS: 80053; 85025; G0463; 99213

== ENCOUNTER → 2020-09-26 | Outpatient (CLI) | payer MEDICARE, OTHER ==
[~2020-09-26] MED LIST changes: -DOCU-238 PO; +DOCU-241 PO
[2020-09-26 11:12] LABS: BASOPHILS % (AUTO) 1 % (0-10); EOSINOPHILS # (AUTO) 0.3 10^3/uL (0.0-0.3); EOSINOPHILS % (AUTO) 8 % (0-10); HEMATOCRIT 40 % (35-52); HEMOGLOBIN 12.7 g/dL (11.5-16.0); LYMPHOCYTES # (AUTO) 1.3 10^3/uL (1.0-4.0); LYMPHOCYTES % (AUTO) 30 % (12-44); MEAN CORPUSCULAR HEMOGLOBIN 29 pg (25-34); MEAN CORPUSCULAR HGB CONC 32 g/dL (32-36); MEAN CORPUSCULAR VOLUME 92 fL (80-99); MEAN PLATELET VOLUME 9.1 fL (9.0-12.2); MONOCYTES # (AUTO) 0.4 10^3/uL (0.0-1.0); MONOCYTES % (AUTO) 9 % (0-12); NEUTROPHILS # (AUTO) 2.2 10^3/uL (1.8-7.8); NEUTROPHILS % (AUTO) 52 % (42-75); PLATELET COUNT 326 10^3/uL (130-400); WHITE BLOOD COUNT 4.2 10^3/uL (4.3-11.0)
[2020-09-26 11:40] LABS: ALBUMIN 3.9 GM/DL (3.2-4.5); BILIRUBIN,TOTAL 0.4 MG/DL (0.1-1.0); CALCIUM 9.5 MG/DL (8.5-10.1); CREATININE SERUM 1.3 MG/DL (0.60-1.30); POTASSIUM 3.8 MMOL/L (3.6-5.0); TOTAL PROTEIN 6.8 GM/DL (6.4-8.2)
== END ==
LOC: ONC 10:59
PROVIDERS: ATTEND Internal Medicine Hematology & Oncology
DX: C50.112 Malignant neoplasm of central portion of left female breast (principal); M85.80 Other specified disorders of bone density and structure, unspecified site; I12.9 Hypertensive chronic kidney disease with stage 1 through stage 4 chronic kidney disease, or unspecified chronic kidney disease; N18.30 Chronic kidney disease, stage 3 unspecified; M85.88 Other specified disorders of bone density and structure, other site; Z78.0 Asymptomatic menopausal state; Z90.12 Acquired absence of left breast and nipple; Z98.890 Other specified postprocedural states; Z92.3 Personal history of irradiation; Z80.3 Family history of malignant neoplasm of breast; E03.9 Hypothyroidism, unspecified
CPT/HCPCS: 80053; 85025; G0463; 99213

== ENCOUNTER → 2020-12-06 | Outpatient (CLI) | payer MEDICARE, OTHER ==
[~2020-12-06] MED LIST changes: -DOCU-241 PO; +DOCU-26 PO
[2020-12-06 11:28] LABS: CREATININE SERUM 1.41 MG/DL (0.60-1.30)
--- NOTE | 2020-12-06 17:04 | Diagnostic Imaging Report ---
INDICATION: Breast cancer. TECHNIQUE: Axial images were obtained from the thoracic inlet through the iliac crest without the administration of intravenous contrast. Auto Exposure Controls were utilized during the CT exam to meet ALARA standards for radiation dose reduction. COMPARISON: There is no previous chest and abdominal CT for comparison. CT CHEST FINDINGS: Patient has had a previous left mastectomy. There are no enlarged axillary nodes. There are surgical clips in the left axilla. There are no enlarged mediastinal or hilar nodes. There are no pleural or pericardial fluid collections. There is no overt bony abnormality in the chest. Lung parenchymal windows demonstrate no pulmonary parenchymal infiltrates or nodules. There is some scarring in the left upper lobe and some atelectatic change in the left base. CT ABDOMEN FINDINGS: The liver shows no discrete focal lesion without contrast. Gallbladder contains some sludge. Spleen, adrenals, and pancreas appear normal. The kidneys bilaterally show no hydronephrosis or radiopaque stone. There is no retroperitoneal mass or adenopathy. There is no ascites. Visualized bowel loops are not distended. IMPRESSION: CT chest shows evidence of previous left mastectomy. There is no adenopathy or pleural fluid. There is some linear scarring in the lingula and some mild left basilar atelectasis. CT of the abdomen demonstrates no overt metastatic disease. Dictated by: Dictated on workstation # [id number]
== END ==
LOC: RAD 09:45
PROVIDERS: ATTEND Internal Medicine Hematology & Oncology
DX: J98.11 Atelectasis (principal); C50.112 Malignant neoplasm of central portion of left female breast; C79.89 Secondary malignant neoplasm of other specified sites; C79.2 Secondary malignant neoplasm of skin; Z90.12 Acquired absence of left breast and nipple
CPT/HCPCS: 36415; 71250; 74150; 82565; 84520